=== PATIENT | male | born 1965 | race American Indian/Alaskan Native ===

== ENCOUNTER 2021-02-01 09:52 | Day surgery (SDC) | payer OTHER ==
[2021-02-01 10:54] LABS: Basophils % (Auto) 0.8 % (0.0-1.8); Eosinophils # (Auto) 0.1 K/mm3 (0.0-0.4); Eosinophils % (Auto) 3.1 % (0.0-4.3); Hematocrit 36.3 % (35.5-45.6); Lymphocytes # (Auto) 1.3 K/mm3 (1.2-5.4); Lymphocytes % (Auto) 29.5 % (13.4-35.0); Mean Corpuscular HGB Conc 33 % (32-34); Mean Corpuscular Volume 85 fl (84-94); Monocytes # (Auto) 0.5 K/mm3 (0.0-0.8); Monocytes % (Auto) 11.8 % (0.0-7.3); Platelet Count 303 K/mm3 (140-440); Red Blood Count 4.27 M/mm3 (3.65-5.03); Red Cell Distribution Width 17.1 % (13.2-15.2)
[2021-02-01] MEDS ORDERED: SODIUM CHLORIDE 0.9% 500 ML 500 ML IV SCH (11:00)
[2021-02-01 11:05] LABS: INR 0.98 (0.87-1.13)
[2021-02-01 11:06] LABS: BUN/Creatinine Ratio 18; Blood Urea Nitrogen 14 mg/dL (9-20); Calcium 9.4 mg/dL (8.4-10.2); Hemolysis Index 1; Partial Thromboplastin Time 42.4 Sec. (24.2-36.6)
--- NOTE | 2021-02-01 11:50 | Short Stay Summary ---
Short Stay Documentation Date of service: 02/01/21 Narrative H&P: The patient is a 55-year-old male with a history of a stroke that affects his left lower extremity. He presented with complaints of bilateral lower extremity pain with his left greater than right. He had a work-up including ultrasounds and a CTA of his abdomen pelvis with bilateral lower extremity runoff that demonstrated occlusions of bilateral iliac arteries. He is currently in rehab and has difficulty with his rehab secondary to the occlusions and decreased strength and bilateral lower extremities. He is in need of revascularization and we discussed multiple options including open versus endovascular options. He is interested in attempting the endovascular options prior to any open attempts. He has been given the risk, benefits, and alternative procedures and has consented to the procedure. His right external iliac artery has a stop whereas his left reconstitutes in the common femoral artery so he will require revascularization of the right lower extremity first followed by revascularization of the left. - History Past Medical History: hypertension, hyperlipidemia, PVD, stroke, other (Benign Prostatic Hypertrophy) Past Surgical History: No surgical history Social history: - Allergies and Medications Current Medications: Allergies morphine Allergy (Verified 02/01/21 10:23) UNABLE TO SWALLOW Home Medications Medication Instructions Recorded Confirmed Last Taken Type Furosemide [Lasix] 40 mg PO PRN PRN 02/01/21 02/01/21 01/28/21 History 40 mg Metoprolol [Lopressor TAB] 50 mg PO DAILY 02/01/21 02/01/21 02/01/21 06:00 History Potassium Chloride [Klor-Con M15] 15 meq PO DAILY 02/01/21 02/01/21 02/01/21 06:00 History 1 tab Sacubitril/Valsartan [Entresto 24 1 tab PO DAILY 02/01/21 02/01/21 02/01/21 06:00 History - 26 mg] 1 tab Active Medications Sodium Chloride (Nacl 0.9% 500 Ml) 500 mls @ 50 mls/hr IV DIRECT PAOLO - Physical exam General appearance: no acute distress Lungs: Normal air movement Breasts: deferred Heart: Regular rate Gastrointestinal: normal Male Genitourinary: deferred Rectal Exam: deferred Extremities: pulses intact (1+ right dorsalis pedis and posterior tibial pulses, 1+ left dorsalis pedis pulse), normal temperature - Brief post op/procedure progress note Date of procedure: 02/01/21 Pre-op diagnosis: Peripheral Vascular Disease with B/L Lower Extremity pain and Claudication Post-op diagnosis: same Procedure: 1. Ultrasound-Guided Access Right Superficial Femoral Artery 2. Ultrasound-Guided Access Left Radial Artery 3. Angioplasty and Stent of Right External Iliac Artery with 7 x 60 EverCross Balloon, 8 x 59 Viabahn Stent Graft, 10 x 40 Protg Self-Expanding Stent, 10 x 60 Protg Self-Expanding Stent, and 9 x 60 EverCross Balloon 4. Closure of Right Femoral Arteriotomy with 6 Guyanese Angio-Seal 5. Radiologic Supervision with Interpretation 6. Monitored Moderate Sedation (Total Anesthesia Time: 158 Minutes) Anesthesia: local, other (Monitored Moderate Sedation) Surgeon: RASHAAD STILES Estimated blood loss: minimal Pathology: none Condition: stable - Disposition Condition at discharge: Good Disposition: [id number] TO HOME OR SELFCARE Short Stay Discharge Plan Activity: other (No strenuous activity or heavy lifting with left arm for 24 hours.) Wound: remove dressing (Left wrist dressing in 4 hours. Remove right groin dressing in 24 hours.), other (Okay to shower and wash the wounds with soap and water but do not soak in water for 2 weeks.) Follow up with: RASHAAD STILES MD [Staff Physician] - 14 Days Prescriptions: Apixaban [Eliquis] 5 mg PO BID #60 tablet Clopidogrel [Plavix] 75 mg PO QDAY #90 tablet
[2021-02-01] MEDS ORDERED: HEPARIN/NS 5000 UNIT/500ML 1,000 ML IR ONE (13:44)
[2021-02-01] MEDS ORDERED: MIDAZOLAM 2 MG/2 ML INJ ONE (13:44)
[2021-02-01] MEDS ORDERED: LIDOCAINE (2%) 20 MG/1 ML VIAL 20 ML MDV INFILTRATI ONE (13:45)
[2021-02-01] MEDS ORDERED: NITROGLYCERIN SYRINGE 3 ML ONE (13:46)
[2021-02-01] MEDS ORDERED: VERAPAMIL 5 MG/2 ML INJ ONE (13:46)
[2021-02-01] MEDS ORDERED: SODIUM CHLORIDE 0.9% 1000 ML 1,000 ML ONE (14:10)
[2021-02-01] MEDS: fentaNYL 100 MCG/2 ML INJ ONE ×8 (14:18→16:31)
[2021-02-01] MEDS ORDERED: ceFAZolin/Water 2 GM/20 ML 2 GM/20 ML SYRINGE IV ONE (14:20)
[2021-02-01] MEDS: MIDAZOLAM 2 MG/2 ML INJ ONE ×7 (14:47→16:31)
[2021-02-01] MEDS: HEPARIN 10,000 UNITS/10 ML VIAL ONE ×4 (14:49→16:38)
[2021-02-01] MEDS ORDERED: HEPARIN/NS 5000 UNIT/500ML 500 ML IR ONE (16:03)
[2021-02-01] MEDS ORDERED: CLOPIDOGREL 300 MG TAB PO ONE (17:17)
--- NOTE | 2021-02-01 17:25 | Operative Report ---
Operative Report Operative Report: Date of Procedure: 02/01/2021 Pre-operative Diagnosis: Peripheral Vascular Disease with Bilateral Lower Extrem ity Pain and Claudication Post-operative Diagnosis: Same Procedure(s): 1. Ultrasound-Guided Access Right Superficial Femoral Artery 2. Ultrasound-Guided Access Left Radial Artery 3. Angioplasty and Stent of Right External Iliac Artery with 7 x 60 EverCross Balloon, 8 x 59 Viabahn Stent Graft, 10 x 40 Protg Self-Expanding Stent, 10 x 60 Protg Self-Expanding Stent, and 9 x 60 EverCross Balloon 4. Closure of Right Femoral Arteriotomy with 6 Chilean Angio-Seal 5. Radiologic Supervision with Interpretation 6. Monitored Moderate Sedation (Total Anesthesia Time: 158 Minutes) Surgeon: Canelo Byers M.D. Primary Counselor: Joi Anesthesia: Monitored Moderate Sedation seen Total Anesthesia Time: 158 Minutes EBL: Minimal Counts: Correct Complications: None Condition: Stable Specimen: None Indication: The patient is a 55-year-old male in mild with a history of a stroke affecting his left lower extremity. He presented with complaints of pain and weakness left greater than right involving bilateral lower extremities. His work-up revealed occlusions of bilateral external iliac arteries. He was offered options including endovascular intervention as well as open intervention. He elected to proceed with the endograft intervention. He was given the risk, benefits, and alternative procedures and consented to the procedure. Angiographic Findings: Diagnostic angiogram revealed a high bifurcation of the right SFA and profunda artery. There was occlusion of the common femoral artery just above the bifurcation. The entire external iliac artery was occluded. The common iliac artery and hypogastric artery were widely patent. There were large collaterals from the hypogastric artery that eventually filled the inferior epigastric artery which flowed into the common femoral artery and into the lower extremity. There was no evidence of flow-limiting stenosis within the visualized portions of the SFA and profunda artery. After intervention the external iliac artery was patent with less than 15% residual stenosis. There was thrombus that had been trapped within the common iliac artery behind the stents within the external iliac artery. There was thrombus that had embolized into the proximal hypogastric artery however there was still flow within the hypogastric artery. There was brisk flow through the external iliac artery and into the common femoral artery which had a stent extending into the artery just proximal to the bifurcation. There was no evidence of distal emboli into the common femoral artery. There was now retrograde flow within the inferior epigastric artery. Description of Procedure: The patient was brought to the [facility] and laid in supine position. After a timeout was performed his right leg and left wrist were prepped and draped in normal sterile fashion. Ultrasound was used to identify the right superficial femoral artery and confirm patency. Once patency was confirmed the overlying skin and soft tissue was anesthetized with lidocaine. An 11 blade was used to make a small stab incision and then a curved hemostat was used to bluntly dissect down to the anterior surface of the right superficial femoral artery. A 21-gauge micropuncture needle was used with ultrasound guidance to enter the right superficial femoral artery and a 0.018 micropuncture wire was advanced to the artery. The needle was removed and a micropuncture sheath was advanced over the wire by Seldinger technique. The dilator and wire were removed and a 0.035 short sheath J-wire was advanced into the artery. The micropuncture sheath was removed and a 5 Chilean sheath was placed by Seldinger technique. I made an attempt with a Navicross and multiple wires to cross the occluded common femoral artery into the external iliac artery however this was unsuccessful. I then decided to access the left radial artery. Ultrasound was used to identify the left radial artery and confirm patency. Once patency was confirmed the overlying skin and soft tissue was anesthetized with lidocaine. I used a 21- gauge micropuncture needle with ultrasound guidance to into the left radial artery and a 0.018 micropuncture wire was advanced to the artery. The needle was removed and a 6 Chilean glide slender sheath was advanced into the artery by Seldinger technique. I then administered a radial cocktail to reduce the radial spasm. I advanced the Navicross catheter and a 0.035 glide advantage wire into the thoracic aorta and was able to cannulate the descending aorta. I advanced the catheter and wire into the infrarenal aorta and then performed an angiogram after removing the wire. This identified the left common iliac artery and the level of the occlusion. I advanced the advantage wire into the right hypogastric artery and then remove the Navicross catheter. I then advanced a 6 x 119 cm glide destination sheath into the proximal right common iliac artery and at that point I gave the patient an additional 3000 units of heparin IV. I then used the Navicross catheter with a 0.018 Gladius Wire and was able to advance the catheter and wire to the distal external iliac artery however I was unable to enter the common femoral artery. I was eventually able to advance a 0.014 Choice PT wire into the inferior epigastric artery. I then used a 5 Chilean vertebral catheter and was able to advance that from the right SFA access into the inferior epigastric artery and then used a 6-10 mm Ensare through the vertebral catheter and was able to snare the Choice PT wire and pulled it through the right superficial femoral artery access. At this point I had the patient "body flossed " I then advanced a 0.035 Trailblazer crossing catheter from the left radial access over the Choice PT wire and into the 5 Chilean sheath in the right SFA. I removed the Choice PT wire and advanced the glide advantage wire through the trailblazer catheter. I then remove the 5 Chilean sheath and exchanged for a 7 Chilean 11 cm sheath. I removed the trouble as a catheter and pulled enough of the advantage wire through the 7 Chilean sheath to advanced the Navicross back over the wire and then pulled the advantage wire out and turned it around so that the stiff portion of the wire was out through the SFA and the floppy portion was in the aorta. I then performed angioplasty of the entire right external iliac artery and proximal common femoral artery with a 7 x 60 EverCross Balloon. This resulted in a heavily dissected and barely patent external iliac artery and obvious thrombus within the common iliac artery as well as the hypogastric artery. At this point I realized that I would have to place a stent graft in the proximal external iliac artery. I advanced an 8 x 59 Viabahn VBX Balloon Expandable Stent Graft approximately 5 mm into the common iliac artery and deployed it. There was obvious thrombus in the proximal portion of the stent graft so I deployed a 10 x 40 Protg Self-Expanding Stent with approximately 2 cm of overlap into the common iliac artery. This effectively trapped the thrombus within the common iliac artery but behind the stent. I then postdilated the proximal portion of the Viabahn as well as the overlap of the Protg with a 10 x 40 EverCross Balloon resulted in less than 15% residual stenosis within the proximal external iliac artery. I put deployed a 10 x 60 Protg Self-Expanding Stent, with approximately 2 cm of overlap, and the external iliac extending into the proximal common femoral artery. I postdilated this with a 9 x 60 EverCross Balloon with a result of less than 15% residual stenosis and no evidence of distal emboli. Again there was evidence of some emboli in the proximal hypogastric artery but there was brisk flow throughout the artery. At this point I removed the sheath used a 6 Chilean Gema o-Seal to close the right superficial femoral artery arteriotomy. I then reinserted the advantage wire through the left radial sheath and inserted the dilator. I then removed the sheath as well as the dilator and wire and manual pressure was held to achieve hemostasis. Once hemostasis was achieved a pressure dressing was applied on the left radial artery access site and the patient was transported to the recovery area in stable condition.
[2021-02-01] MEDS ORDERED: HYDROcodone/ACETAMINOPHEN 5-325 MG TAB PO PRN (17:31)
[2021-02-01] MEDS ORDERED: APIXABAN 5 MG TAB PO ONE (18:00)
[2021-02-01] MEDS ORDERED: APIXABAN 5 MG TAB ONE (18:05)
[2021-02-01] MEDS ORDERED: ONDANSETRON 4 MG/2 ML INJ IV ONE (18:41)
[2021-02-01 19:36] VITALS: BP 129/80
== END 2021-02-01 20:00 | disposition home or self-care (01) ==
LOC: CATHLABREC 09:52
PROVIDERS: ATTEND Surgery Vascular Surgery
DX: I70.213 Atherosclerosis of native arteries of extremities with intermittent claudication, bilateral legs (principal); I48.91 Unspecified atrial fibrillation; I10 Essential (primary) hypertension; M19.90 Unspecified osteoarthritis, unspecified site; Z87.891 Personal history of nicotine dependence; Z79.899 Other long term (current) drug therapy; Z98.890 Other specified postprocedural states
CPT/HCPCS: 36415; 37221; 75710; 76937; 80048; 82962; 85025; 85610; 85730; 96374; 99156; 99157; C1725; C1760; C1769; C1773; C1874; C1876; C1887; C1894; J0690; J1644; J2250; J2405; J3010; J7030; Q9967

== ENCOUNTER 2021-02-15 10:53 | Observation (INO) | payer OTHER ==
[2021-02-15] MEDS ORDERED: SODIUM CHLORIDE 0.9% 500 ML 500 ML IV SCH (12:00)
[2021-02-15 12:21] LABS: Basophils # (Auto) 0.1 K/mm3 (0.0-0.1); Basophils % (Auto) 1.4 % (0.0-1.8); Eosinophils # (Auto) 0.2 K/mm3 (0.0-0.4); Hematocrit 30.6 % (35.5-45.6); Hemoglobin 10.2 gm/dl (11.8-15.2); Lymphocytes # (Auto) 1.4 K/mm3 (1.2-5.4); Lymphocytes % (Auto) 28.9 % (13.4-35.0); Mean Corpuscular HGB Conc 34 % (32-34); Mean Corpuscular Volume 86 fl (84-94); Monocytes # (Auto) 0.5 K/mm3 (0.0-0.8); Monocytes % (Auto) 11.1 % (0.0-7.3); Platelet Count 306 K/mm3 (140-440); Red Blood Count 3.57 M/mm3 (3.65-5.03); Red Cell Distribution Width 17.3 % (13.2-15.2)
[2021-02-15 12:34] LABS: BUN/Creatinine Ratio 18; Blood Urea Nitrogen 14 mg/dL (9-20); Calcium 9.4 mg/dL (8.4-10.2); Hemolysis Index 10
[2021-02-15 14:08] LABS: INR 1.08 (0.87-1.13); Partial Thromboplastin Time 29.4 Sec. (24.2-36.6)
[2021-02-15] MEDS ORDERED: HYDROcodone/ACETAMINOPHEN 5-325 MG TAB PO PRN (15:52)
[2021-02-15] MEDS ORDERED: ACETAMINOPHEN 325 MG TAB PO PRN (15:52)
[2021-02-15] MEDS ORDERED: HEPARIN/NS 5000 UNIT/500ML 1,000 ML IR ONE (15:52)
[2021-02-15] MEDS: HEPARIN 10,000 UNITS/10 ML VIAL ONE ×4 (16:05→17:39)
[2021-02-15] MEDS: VERAPAMIL 5 MG/2 ML INJ ONE ×2 (16:06→16:41)
[2021-02-15] MEDS: ceFAZolin/Water 2 GM/20 ML 2 GM/20 ML SYRINGE IV ONE ×2 (16:07→16:13)
[2021-02-15] MEDS: NITROGLYCERIN SYRINGE 3 ML ONE ×2 (16:10→16:41)
[2021-02-15] MEDS: fentaNYL 100 MCG/2 ML INJ ONE ×3 (16:20→17:24)
[2021-02-15] MEDS: MIDAZOLAM 2 MG/2 ML INJ ONE ×3 (16:20→17:24)
[2021-02-15] MEDS: LIDOCAINE (2%) 20 MG/1 ML VIAL 20 ML MDV INFILTRATI ONE ×2 (16:25→16:38)
[2021-02-15] MEDS ORDERED: fentaNYL 100 MCG/2 ML INJ ONE (17:32)
[2021-02-15] MEDS ORDERED: MIDAZOLAM 2 MG/2 ML INJ ONE (17:32)
[2021-02-15] MEDS ORDERED: hydrALAZINE 20 MG/1 ML INJ ONE (17:50)
[2021-02-15] MEDS ORDERED: CLOPIDOGREL 300 MG TAB ONE (18:14)
[2021-02-15] MEDS ORDERED: CLOPIDOGREL 300 MG TAB PO ONE (18:22)
[2021-02-15] MEDS ORDERED: hydrALAZINE 20 MG/1 ML INJ IV PRN (18:24)
--- NOTE | 2021-02-15 18:28 | Operative Report ---
Operative Report Operative Report: Date of Procedure: 02/15/2021 Pre-operative Diagnosis: Peripheral Vascular Disease with Left Lower Extremity W eakness and Claudication Post-operative Diagnosis: Same Procedure(s): 1. Ultrasound-Guided Access Left Superficial Femoral Artery 2. Ultrasound-Guided Access Left Radial Artery 3. Left Lower Extremity Angiogram 4. Angioplasty and Stent of Left Common Iliac Artery with 10 x 40 EverCross Balloon, 8 x 59 Viabahn VBX Balloon Expandable Stent Graft, and 10 x 60 Protg Self-expanding Stent 5. Angioplasty and Stent of Left External Iliac Artery with 8 x 60 Lutonix Drug-Coated Balloon and 8 x 10 cm Viabahn Stent Graft 6. Angioplasty and Stent 0f Left Common Femoral Artery with 7 x 80 IN.PACT Drug-Coated Balloon and 8 x 40 Protg Self-expanding Stent 7. Closure of Left Femoral Arteriotomy with 6 Micronesian Angio-Seal 8. Radiologic Supervision with Interpretation 9. Monitored Moderate Sedation (Total Anesthesia Time: 113 Minutes) Surgeon: Canelo Byers M.D. Filtration Plant Mechanic: None Anesthesia: Local/Monitored Moderate Sedation Total Anesthesia Time: 113 Minutes EBL: Minimal Counts: Correct Complications: None Condition: Stable Specimen: None Indication: The patient is a 55-year-old male with a history of peripheral vascular disease and claudication of his right lower extremity with severe weakness of his left lower extremity which was complicated by stroke involving his left side. He has been attempting to rehab however given the stroke as well as peripheral vascular disease involving bilateral lower extremities it has been difficult for him to rehab. He has had endovascular invention to improve the flow to his right lower extremity and now presents for endovascular intervention to improve the left lower extremity. He has been given the risks, benefits, and alternative procedures and consents to the procedure. Angiographic Findings: The angiogram revealed an occlusion of the left external iliac artery at its origin with reconstitution of flow through collaterals from the hypogastric artery at the distal common femoral artery just above the bifurcation of the SFA and profunda artery. There was no significant stenosis in the distal runoff. After intervention there was evidence of thrombus within the hypogastric artery that was trapped in place by self-expanding stent preventing it from embolizing down the leg. The thrombus within the hypogastric artery was not flow-limiting. There was brisk flow through the external iliac artery which was now patent with less than 20% residual stenosis. The common femoral artery was patent with less than 20% residual stenosis. There was no evidence of distal emboli and brisk flow of contrast into both the SFA and profunda artery. Description of Procedure: The patient was brought to the [facility] and laid in supine position. After timeout was performed his left groin, thigh, and left wrist were prepped and draped in normal sterile fashion. Ultrasound was used to identify the left superficial femoral artery and confirm patency. Once patency was confirmed the overlying skin and soft tissue was anesthetized with lidocaine. An 11 blade was used to make a small stab incision and then a curved hemostat was used with ultrasound guidance to bluntly dissect down to the anterior surface of the left SFA. A 21-gauge micropuncture needle was used with ultrasound guidance into the anterior surface of the left SFA and a 0.018 micropuncture wire was advanced into the artery. The needle was removed and a micropuncture sheath was placed by Seldinger technique. The wire and inner dilator were removed and a 0.035 short J-wire were advanced into the artery. The micropuncture sheath was exchanged for a 5 Micronesian sheath by Seldinger technique. A hand-injection performed from the sheath demonstrated occlusion of the common femoral artery with a small stump just above the bifurcation. I attempted to cross this with a vertebral catheter and 0.018 Gladius Wire however this was unsuccessful so I decided to access the radial artery. Ultrasound was used to identify the radial artery and confirm patency. I used lidocaine to anesthetize the skin and overlying soft tissue and then used a 21-gauge micropuncture needle to access the radial artery with ultrasound guidance. I advanced the 0.018 micropuncture wire into the artery and then exchanged the needle for a 6 Micronesian sheath. At this point I injected a radial cocktail consisting of heparin, verapamil, and nitroglycerin to prevent radial spasm. I then used a Bentson wire and JR4 catheter to cannulate the descending thoracic aorta and then exchanged the Bentson wire for a 0.035 glide advantage wire. I then exchanged the JR4 catheter for a Navicross catheter and advanced the catheter and wire into the distal aorta. I performed a diagnostic angiogram with the previously described findings. I advanced the advantage wire into the distal left common iliac artery and then exchanged the 6 Micronesian 11 cm sheath for a 6 Micronesian 119 cm sheath. At this point I systemically heparinized the patient with an additional 4000 units of heparin IV. I then advanced the Navicross catheter back into the iliac artery and used a combination of the Gladius Wire and the glide advantage wire to cross the occluded external iliac artery and proximal common femoral artery and reenter the distal common femoral artery which was confirmed by angiogram. I then used the glide advantage wire and the Navicross catheter to cannulate the 5 Micronesian sheath within the SFA and advanced the wire through the vertebral catheter and out of the left femoral puncture site. I then exchanged the 5 Micronesian sheath for a 7 Micronesian 23 cm sheath. I advanced this sheath into the left common iliac artery. At that point I advanced the glide advantage wire through the 7 Micronesian sheath and into the aorta and pulled the radial wire back into the aorta. I then used a 5 x 120 EverCross Balloon to predilate the occlusion of the external iliac artery and common femoral artery. I then advanced an 8 x 59 Viabahn VBX Balloon Expandable Stent Graft into the distal left common iliac artery and deployed it. I removed the delivery catheter and performed an angiogram which demonstrated thrombus within the common iliac artery as well as in the hypogastric artery. I then placed a 10 x 60 Protg Self-Expanding Stent into the proximal common iliac artery, trapping the thrombus within the artery, to prevent embolization of the thrombus. I used a 10 x 40 EverCross Balloon to flowered the proximal Viabahn VBX stent graft. This resulted in less than 20% residual stenosis of the distal common iliac artery as well as trapping the thrombus within the artery. The thrombus within the hypogastric artery was nonocclusive and nonflow-limiting. I used an 8 x 60 Lutonix Drug-Coated Balloon to perform angioplasty of the remaining external iliac artery which resulted in approximately 60% residual stenosis with a significant amount of thrombus line in the artery. I decided to place a stent graft across this area so I exchanged the glide advantage wire for the 0.018 Gladius Wire. I advanced the 8 x 10 cm Viabahn Stent Graft into position in the external iliac artery with some overlap into the common femoral artery and then postdilated this with an 8 x 40 [place] Balloon with a result of less than 20% residual stenosis and no evidence of distal emboli. I then used a 7 x 80 IN.PACT drug-coated balloon to perform angioplasty of the distal common femoral artery which had a significant dissection. I further treated this with an 8 x 40 Protg Self-Expanding Stent and posted this with the 8 x 40 [place] Balloon resulted in less than 20% residual stenosis and brisk flow into both the SFA and profunda artery. There was no evidence of distal emboli within the SFA or profunda artery. At this point I used a 6 Micronesian Angio-Seal to close my left femoral arteriotomy in the SFA after removing the sheath. A sterile dressing was then applied to the entry site and then the pressure dressing was applied. I then reinserted the dilator and the radial sheath and exchanged it for a 6 Micronesian 11 cm sheath. A TR Band was then applied to the radial entry site after removing the sheath, to achieve hemostasis. The patient tolerated the procedure well and was transported to the recovery area in stable condition.
[2021-02-15] MEDS ORDERED: ONDANSETRON 4 MG/2 ML INJ IV PRN (19:05)
[2021-02-15] MEDS: oxyCODONE /ACETAMINOPHEN 5-325MG TAB PO PRN (20:05)
[2021-02-15] MEDS: PANTOPRAZOLE 40 MG TAB PO SCH (22:36)
[2021-02-15] MEDS: APIXABAN 5 MG TAB PO SCH (22:36)
[2021-02-15] MEDS: SODIUM CHLORIDE 0.9% 1000 ML 1,000 ML IV SCH (22:37)
[2021-02-16] LABS: Hematocrit 31.9 % (35.5-45.6); Hemoglobin 10.6 gm/dl (11.8-15.2); Mean Corpuscular HGB Conc 33 % (32-34); Mean Corpuscular Volume 86 fl (84-94); Platelet Count 326 K/mm3 (140-440); Red Blood Count 3.73 M/mm3 (3.65-5.03)
[2021-02-16 00:10] LABS: INR 1.07 (0.87-1.13)
[2021-02-16 00:11] LABS: Partial Thromboplastin Time 31.6 Sec. (24.2-36.6)
[2021-02-16] MEDS: FUROSEMIDE 40 MG TAB PO SCH (05:30)
--- NOTE | 2021-02-16 09:02 | Short Stay Summary ---
Short Stay Documentation Date of service: 02/16/21 Narrative H&P: See H&P - History H&P: obtained from office - Allergies and Medications Current Medications: Allergies morphine Allergy (Verified 02/01/21 10:23) UNABLE TO SWALLOW Home Medications Medication Instructions Recorded Confirmed Last Taken Type Apixaban [Eliquis] 5 mg PO BID #60 tablet 02/01/21 02/15/21 1 Day Ago Rx ~02/14/21 Potassium Chloride [Klor-Con M15] 15 meq PO DAILY 02/01/21 02/15/21 1 Day Ago History ~02/14/21 RX: Furosemide [Lasix] 40 mg PO PRN PRN 02/01/21 02/15/21 1 Day Ago History ~02/14/21 RX: Metoprolol [Lopressor TAB] 50 mg PO DAILY 02/01/21 02/15/21 1 Day Ago History ~02/14/21 RX: Sacubitril/Valsartan [Entresto 1 tab PO DAILY 02/01/21 02/15/21 1 Day Ago History 24 - 26 mg] ~02/14/21 Oxybutynin [Ditropan] 5 mg PO QHS 02/16/21 02/16/21 02/13/21 22:00 History Active Medications Acetaminophen (Acetaminophen 325 Mg Tab) 650 mg PO Q6H PRN PRN Reason: Pain, Mild (1-3) Apixaban (Apixaban 5 Mg Tab) 5 mg PO Q12HR [facility]; Protocol Last Admin: 02/15/21 22:36 Dose: 5 mg Documented by: Aspirin (Aspirin Ec 81 Mg Tab) 81 mg PO QDAY [facility] Clopidogrel Bisulfate (Clopidogrel 75 Mg Tab) 75 mg PO QDAY [facility] Furosemide (Furosemide 40 Mg Tab) 40 mg PO DAILY@0600 [facility] Last Admin: 02/16/21 05:30 Dose: 40 mg Documented by: Hydralazine HCl (Hydralazine 20 Mg/1 Ml Inj) 20 mg IV Q4HR PRN PRN Reason: Hypertension Sodium Chloride (Nacl 0.9% 1000 Ml) 1,000 mls @ 75 mls/hr IV DIRECT [facility] Last Admin: 02/15/21 22:37 Dose: 75 mls/hr Documented by: Metoprolol Tartrate (Metoprolol Tartrate 50 Mg Tab) 50 mg PO DAILY [facility] Ondansetron HCl (Ondansetron 4 Mg/2 Ml Inj) 4 mg IV Q8H PRN PRN Reason: Nausea And Vomiting Last Admin: 02/15/21 19:10 Dose: 4 mg Documented by: Oxycodone/Acetaminophen (Oxycodone /Acetaminophen 5-325mg Tab) 1 tab PO Q4H PRN PRN Reason: Pain, Moderate (4-6) Last Admin: 02/15/21 20:05 Dose: 1 tab Documented by: Pantoprazole Sodium (Pantoprazole 40 Mg Tab) 40 mg PO QDAC [facility] Last Admin: 02/15/21 22:36 Dose: 40 mg Documented by: Potassium Bicarbonate (K-Lyte 25 Meq Tablet Eff) 25 meq PO QDAY [facility] - Brief post op/procedure progress note Date of procedure: 02/15/21 Pre-op diagnosis: PVD with Left Lower Extremity Weakness and Claudication Post-op diagnosis: same Procedure: 1. Ultrasound-Guided Access Left Superficial Femoral Artery 2. Ultrasound-Guided Access Left Radial Artery 3. Left Lower Extremity Angiogram 4. Angioplasty and Stent of Left Common Iliac Artery with 10 x 40 EverCross Balloon, 8 x 59 Viabahn VBX Balloon Expandable Stent Graft, and 10 x 60 Protg Self-expanding Stent 5. Angioplasty and Stent of Left External Iliac Artery with 8 x 60 Lutonix Drug-Coated Balloon and 8 x 10 cm Viabahn Stent Graft 6. Angioplasty and Stent 0f Left Common Femoral Artery with 7 x 80 IN.PACT Drug-Coated Balloon and 8 x 40 Protg Self-expanding Stent 7. Closure of Left Femoral Arteriotomy with 6 [place] Angio-Seal 8. Radiologic Supervision with Interpretation 9. Monitored Moderate Sedation (Total Anesthesia Time: 113 Minutes) Anesthesia: local, other (Monitored Moderate Sedation) Surgeon: RASHAAD STILES Estimated blood loss: minimal Pathology: none Condition: stable - Disposition Condition at discharge: Good Disposition: 01 HOME / SELF CARE / HOMELESS Short Stay Discharge Plan Activity: other (No strenuous activity for 24 hours) Wound: remove dressing (24 hours), other (Okay to shower and wash the wound with soap and water but do not soak in water for 2 weeks.) Follow up with: RASHAAD STILES MD [Staff Physician] - 14 Days Prescriptions: RX: Aspirin EC [Halfprin EC] 81 mg PO QDAY #90 tablet.dr Oxycodone HCl/Acetaminophen [Percocet 7.5/325 mg] 1 each PO Q6HR PRN #20 tablet PRN Reason: Pain Clopidogrel [Plavix] 75 mg PO QDAY #90 tablet Pantoprazole [Protonix] 40 mg PO QDAY #90 tablet
[2021-02-16] MEDS: ASPIRIN EC 81 MG TAB PO SCH (10:42)
[2021-02-16] MEDS: APIXABAN 5 MG TAB PO SCH ×2 (10:42→23:30)
[2021-02-16] MEDS: SACUBITRIL/VALSARTAN 24-26 MG TAB PO SCH (10:42)
[2021-02-16] MEDS: PANTOPRAZOLE 40 MG TAB PO SCH (10:42)
[2021-02-16] MEDS: K-LYTE 25 MEQ TABLET EFF PO SCH (10:42)
[2021-02-16] MEDS: METOPROLOL TARTRATE 50 MG TAB PO SCH (10:43)
[2021-02-16] MEDS: CLOPIDOGREL 75 MG TAB PO SCH (10:43)
[2021-02-16] MEDS: oxyCODONE /ACETAMINOPHEN 5-325MG TAB PO PRN ×2 (13:38→23:30)
--- NOTE | 2021-02-16 14:40 | Consultation ---
History of Present Illness Consult date: 02/16/21 Reason for consult: wound care - History of present illness History of present illness: General surgery consulted for wound evaluation on sacrum. Patient is a 55-year-old male who was admitted status post endovascular procedure for peripheral vascular disease. Patient says he is wheelchair-bound and has had some pain in the sacral area for the last 5 to 6 days. Past History Past Medical History: hypertension, hyperlipidemia, stroke, other (Peripheral vascular disease) Past Surgical History: Other (Endovascular peripheral procedures) Medications and Allergies Allergies Allergy/AdvReac Type Severity Reaction Status Date / Time morphine Allergy UNABLE TO Verified 02/01/21 10:23 SWALLOW Home Medications Medication Instructions Recorded Confirmed Last Taken Type Apixaban [Eliquis] 5 mg PO BID #60 tablet 02/01/21 02/15/21 1 Day Ago Rx ~02/14/21 Furosemide [Lasix] 40 mg PO PRN PRN 02/01/21 02/15/21 1 Day Ago History ~02/14/21 Metoprolol [Lopressor TAB] 50 mg PO DAILY 02/01/21 02/15/21 1 Day Ago History ~02/14/21 Potassium Chloride [Klor-Con M15] 15 meq PO DAILY 02/01/21 02/15/21 1 Day Ago History ~02/14/21 Sacubitril/Valsartan [Entresto 24 1 tab PO DAILY 02/01/21 02/15/21 1 Day Ago History - 26 mg] ~02/14/21 Aspirin EC [Halfprin EC] 81 mg PO QDAY #90 tablet. 02/16/21 Unknown Rx Clopidogrel [Plavix] 75 mg PO QDAY #90 tablet 02/16/21 Unknown Rx Oxybutynin [Ditropan] 5 mg PO QHS 02/16/21 02/16/21 02/13/21 22:00 History Oxycodone HCl/Acetaminophen 1 each PO Q6HR PRN #20 tablet 02/16/21 Unknown Rx [Percocet 7.5/325 mg] Pantoprazole [Protonix] 40 mg PO QDAY #90 tablet 02/16/21 Unknown Rx Active Meds: Active Medications Acetaminophen (Acetaminophen 325 Mg Tab) 650 mg PO Q6H PRN PRN Reason: Pain, Mild (1-3) Apixaban (Apixaban 5 Mg Tab) 5 mg PO Q12HR [facility]; Protocol Last Admin: 02/16/21 10:42 Dose: 5 mg Documented by: Aspirin (Aspirin Ec 81 Mg Tab) 81 mg PO QDAY [facility] Last Admin: 02/16/21 10:42 Dose: 81 mg Documented by: Clopidogrel Bisulfate (Clopidogrel 75 Mg Tab) 75 mg PO QDAY [facility] Last Admin: 02/16/21 10:43 Dose: 75 mg Documented by: Furosemide (Furosemide 40 Mg Tab) 40 mg PO DAILY@0600 [facility] Last Admin: 02/16/21 05:30 Dose: 40 mg Documented by: Hydralazine HCl (Hydralazine 20 Mg/1 Ml Inj) 20 mg IV Q4HR PRN PRN Reason: Hypertension Sodium Chloride (Nacl 0.9% 1000 Ml) 1,000 mls @ 75 mls/hr IV DIRECT [facility] Last Admin: 02/15/21 22:37 Dose: 75 mls/hr Documented by: Metoprolol Tartrate (Metoprolol Tartrate 50 Mg Tab) 50 mg PO DAILY [facility] Last Admin: 02/16/21 10:43 Dose: 50 mg Documented by: Ondansetron HCl (Ondansetron 4 Mg/2 Ml Inj) 4 mg IV Q8H PRN PRN Reason: Nausea And Vomiting Last Admin: 02/15/21 19:10 Dose: 4 mg Documented by: Oxycodone/Acetaminophen (Oxycodone /Acetaminophen 5-325mg Tab) 1 tab PO Q4H PRN PRN Reason: Pain, Moderate (4-6) Last Admin: 02/16/21 13:38 Dose: 1 tab Documented by: Pantoprazole Sodium (Pantoprazole 40 Mg Tab) 40 mg PO QDAC [facility] Last Admin: 02/16/21 10:42 Dose: 40 mg Documented by: Potassium Bicarbonate (K-Lyte 25 Meq Tablet Eff) 25 meq PO QDAY [facility] Last Admin: 02/16/21 10:42 Dose: 25 meq Documented by: Review of Systems All systems: negative - Cardiovascular high blood pressure - Muskuloskeletal atrophy - Integumentary wounds - Neurological weakness, parathesias Exam Vital Signs Temp Pulse Resp BP Pulse Ox 98.5 F 64 21 104/64 99 02/15/21 11:41 02/15/21 11:41 02/15/21 11:41 02/15/21 11:41 02/15/21 11:41 - General physical appearance Positive: no distress, no pain, cathetic - Eyes Positive: PERRL - Respiratory Positive: normal expansion, normal respiratory effort - Extremities Extremities: abnormal (Bilateral lower extremity atrophy) - Abdomen Abdomen: Present: soft. Absent: tender - Integumentary other (1 x 2 cm superficial skin breakdown at the sacral prominence at the proximal gluteal cleft. No signs of odor, drainage, or fluctuance.) Results - Labs 02/15/21 23:05 02/15/21 23:05 Abnormal lab results 02/15/21 Range/Units 23:05 Hgb 10.6 L (11.8-15.2) gm/dl Hct 31.9 L (35.5-45.6) % RDW 17.0 H (13.2-15.2) % Diabetes panel 02/15/21 Range/Units 23:05 Creatinine 0.8 (0.8-1.3) mg/dL Pituitary panel 02/15/21 Range/Units 23:05 Creatinine 0.8 (0.8-1.3) mg/dL Adrenal panel 02/15/21 Range/Units 23:05 Creatinine 0.8 (0.8-1.3) mg/dL Assessment and Plan 55-year-old male with a stage I sacral decubitus ulcer. Likely due to his immobility. Patient is afebrile and stable. There is no surgical intervention warranted at this time. Plan: 1. pressure dressings to area daily 2. Offloading 3. prn pain control 4. DVT ppx
--- NOTE | 2021-02-16 19:18 | Progress Note ---
Assessment and Plan The patient is doing well status post endovascular revascularization of his left lower extremity. He has some nausea overnight and this morning and has not been out of bed. I will watch him 1 more day and discharge him tomorrow in the a.m. I discussed with the patient the need for taking all prescribed medications especially his antiplatelet therapy along with his anticoagulation. The patient expressed understanding and agrees with the plan. Subjective Date of service: 02/16/21 Interval history: The patient states he has some nausea overnight without vomiting. He has no additional complaints at this time. Objective - Constitutional Vitals: Vital Signs - 12hr 02/16/21 02/16/21 02/16/21 10:00 11:40 15:17 Temperature 98.8 F 99.0 F Pulse Rate 91 H 78 Respiratory 22 18 Rate Blood Pressure 109/70 101/55 O2 Sat by Pulse 95 97 100 Oximetry General appearance: Present: no acute distress - Respiratory Respiratory effort: normal - Cardiovascular Rhythm: regular Extremities: pulses intact (Left radial pulses intact, bilateral dorsalis pedis pulses and posterior tibial pulses are intact), abnormal (Left thigh is soft and without hematoma, the dressing is clean dry and intact) - Labs CBC & Chem 7: 02/15/21 23:05 02/15/21 23:05 Labs: Abnormal lab results 02/15/21 Range/Units 23:05 Hgb 10.6 L (11.8-15.2) gm/dl Hct 31.9 L (35.5-45.6) % RDW 17.0 H (13.2-15.2) % Medications & Allergies - Medications Allergies/Adverse Reactions: Allergies morphine Allergy (Verified 02/01/21 10:23) UNABLE TO SWALLOW Home Medications: Home Medications Medication Instructions Recorded Confirmed Last Taken Type Apixaban [Eliquis] 5 mg PO BID #60 tablet 02/01/21 02/15/21 1 Day Ago Rx ~02/14/21 Furosemide [Lasix] 40 mg PO PRN PRN 02/01/21 02/15/21 1 Day Ago History ~02/14/21 Metoprolol [Lopressor TAB] 50 mg PO DAILY 02/01/21 02/15/21 1 Day Ago History ~02/14/21 Potassium Chloride [Klor-Con M15] 15 meq PO DAILY 02/01/21 02/15/21 1 Day Ago History ~02/14/21 Sacubitril/Valsartan [Entresto 24 1 tab PO DAILY 02/01/21 02/15/21 1 Day Ago History - 26 mg] ~02/14/21 Aspirin EC [Halfprin EC] 81 mg PO QDAY #90 tablet. 02/16/21 Unknown Rx Clopidogrel [Plavix] 75 mg PO QDAY #90 tablet 02/16/21 Unknown Rx Oxybutynin [Ditropan] 5 mg PO QHS 02/16/21 02/16/21 02/13/21 22:00 History Oxycodone HCl/Acetaminophen 1 each PO Q6HR PRN #20 tablet 02/16/21 Unknown Rx [Percocet 7.5/325 mg] Pantoprazole [Protonix] 40 mg PO QDAY #90 tablet 02/16/21 Unknown Rx Active Medications: Generic Name Dose Route Start Last Admin Trade Name Freq PRN Reason Stop Dose Admin Acetaminophen 650 mg 02/15/21 15:52 Acetaminophen 325 Mg Tab PO Q6H PRN Pain, Mild (1-3) Apixaban 5 mg 02/15/21 22:00 02/16/21 10:42 Apixaban 5 Mg Tab PO 5 mg Q12HR [facility] Administration Protocol Aspirin 81 mg 02/16/21 10:00 02/16/21 10:42 Aspirin Ec 81 Mg Tab PO 81 mg QDAY [facility] Administration Clopidogrel Bisulfate 75 mg 02/16/21 10:00 02/16/21 10:43 Clopidogrel 75 Mg Tab PO 75 mg QDAY [facility] Administration Furosemide 40 mg 02/16/21 06:00 02/16/21 05:30 Furosemide 40 Mg Tab PO 40 mg DAILY@0600 [facility] Administration Hydralazine HCl 20 mg 02/15/21 18:24 Hydralazine 20 Mg/1 Ml Inj IV Q4HR PRN Hypertension Sodium Chloride 1,000 mls @ 75 mls/hr 02/15/21 18:30 02/15/21 22:37 Nacl 0.9% 1000 Ml IV 75 mls/hr DIRECT [facility] Administration Metoprolol Tartrate 50 mg 02/16/21 10:00 02/16/21 10:43 Metoprolol Tartrate 50 Mg Tab PO 50 mg DAILY [facility] Administration Ondansetron HCl 4 mg 02/15/21 19:05 02/15/21 19:10 Ondansetron 4 Mg/2 Ml Inj IV 4 mg Q8H PRN Administration Nausea And Vomiting Oxycodone/Acetaminophen 1 tab 02/15/21 18:26 02/16/21 13:38 Oxycodone /Acetaminophen 5-325mg Tab PO 1 tab Q4H PRN Administration Pain, Moderate (4-6) Pantoprazole Sodium 40 mg 02/15/21 20:00 02/16/21 10:42 Pantoprazole 40 Mg Tab PO 40 mg QDAC [facility] Administration Potassium Bicarbonate 25 meq 02/16/21 10:00 02/16/21 10:42 K-Lyte 25 Meq Tablet Eff PO 25 meq QDAY [facility] Administration
[2021-02-16] MEDS: SODIUM CHLORIDE 0.9% 1000 ML 1,000 ML IV SCH (23:31)
[2021-02-17 04:26] LABS: Hematocrit 29.5 % (35.5-45.6); Hemoglobin 9.7 gm/dl (11.8-15.2); Mean Corpuscular HGB Conc 33 % (32-34); Mean Corpuscular Volume 86 fl (84-94); Platelet Count 295 K/mm3 (140-440); Red Blood Count 3.45 M/mm3 (3.65-5.03); Red Cell Distribution Width 17.5 % (13.2-15.2)
[2021-02-17] MEDS: FUROSEMIDE 40 MG TAB PO SCH (05:09)
[2021-02-17] MEDS: CLOPIDOGREL 75 MG TAB PO SCH (09:37)
[2021-02-17] MEDS: ASPIRIN EC 81 MG TAB PO SCH (09:37)
[2021-02-17] MEDS: APIXABAN 5 MG TAB PO SCH (09:37)
[2021-02-17] MEDS: SACUBITRIL/VALSARTAN 24-26 MG TAB PO SCH (09:38)
[2021-02-17] MEDS: PANTOPRAZOLE 40 MG TAB PO SCH (09:38)
[2021-02-17] MEDS: METOPROLOL TARTRATE 50 MG TAB PO SCH (09:38)
--- NOTE | 2021-02-17 10:04 | Discharge Summary ---
Providers - Providers Date of Admission: 02/15/21 15:52 Date of discharge: 02/17/21 Attending physician: RASHAAD STILES 02/16/21 04:58 Consult to Wound/ET Nurse [CONS] Routine Reason For Exam: wound eval Primary care physician: MICHELLE WHALEN Hospitalization Condition: Good Hospital course: Patient with a history of peripheral vascular disease who is postop day 1 endovascular repair of his iliac arteries using stent graft and drug-coated balloons. The patient's puncture site is soft with only minimal subcutaneous hematoma. Minimal amount of tenderness along the medial aspect of his thigh however, no deep hematoma was palpated. Patient has strongly palpable pedal pulses bilaterally. He has no complaints of pain. Disposition: 01 HOME / SELF CARE / HOMELESS Final Discharge Diagnosis (Prints w/discharge instructions): PVD with claudication Core Measure Documentation - Palliative Care Palliative Care/ Comfort Measures: Not Applicable - Core Measures Any of the following diagnoses?: none Exam - Constitutional Vitals: Temp Pulse Resp BP Pulse Ox 98.8 F 79 18 108/58 96 02/17/21 04:03 02/17/21 09:38 02/17/21 04:03 02/17/21 09:38 02/17/21 04:03 General appearance: Present: no acute distress - EENT Eyes: Present: EOM intact ENT: hearing intact - Neck Neck: Present: supple, normal ROM - Respiratory Respiratory effort: normal - Extremities Extremities: no ischemia, Full ROM - Abdominal General gastrointestinal: Present: deferred Male genitourinary: Present: deferred - Rectal Rectal Exam: deferred - Psychiatric Psychiatric: appropriate mood/affect, cooperative Plan Activity: advance as tolerated Weight Bearing Status: Weight Bear as Tolerated Wound: keep clean and dry, per your surgeon's advice Follow up with: RASHAAD STILES MD [Staff Physician] - 14 Days Prescriptions: Aspirin EC [Halfprin EC] 81 mg PO QDAY #90 tablet. Oxycodone HCl/Acetaminophen [Percocet 7.5/325 mg] 1 each PO Q6HR PRN #20 tablet PRN Reason: Pain Clopidogrel [Plavix] 75 mg PO QDAY #90 tablet Pantoprazole [Protonix] 40 mg PO QDAY #90 tablet
[2021-02-17] MEDS: K-LYTE 25 MEQ TABLET EFF PO SCH (10:39)
[2021-02-17 13:52] VITALS: BP 103/62
== END 2021-02-17 14:00 | disposition home or self-care (01) ==
LOC: CATHLABREC 10:53 → 4A 15:52 → 3A 16:49
PROVIDERS: ADMIT Surgery Vascular Surgery; ATTEND Surgery Vascular Surgery
DX: I70.213 Atherosclerosis of native arteries of extremities with intermittent claudication, bilateral legs (principal); I10 Essential (primary) hypertension; A01.05 Typhoid osteomyelitis; L89.151 Pressure ulcer of sacral region, stage 1; Z79.82 Long term (current) use of aspirin
CPT/HCPCS: 36415; 37221; 37223; 37226; 76937; 80048; 82565; 85025; 85027; 85610; 85730; 87641; 96361; 96374; C1725; C1751; C1760; C1769; C1874; C1876; C1887; C1894; C2623; C9765; G0378; J0360; J0690; J1644; J2250; J2405; J3010; J7030; J7040; Q9967

== ENCOUNTER 2021-02-20 20:57 | Emergency (ER) | payer OTHER ==
[2021-02-20 21:16] VITALS: BP 112/63
--- NOTE | 2021-02-20 21:18 | Event Note ---
ED Screening Note Date of service: 02/20/21 Time: 21:16 ED Screening Note: 55-year-old -Spanish male presents to the emergency room complaining of left lower leg swelling pain and states he cannot feel pulse. Patient is status post stent placement to the left leg last . Patient leg is warm full range of motion not able to appreciate pulses most likely due from his edema. Ultrasound of left lower leg has been ordered. Further studies can be ordered by physician is going to evaluate patient. This initial assessment/diagnostic orders/clinical plan/treatment(s) is/are subject to change based on patients health status, clinical progression and re- assessment by fellow clinical providers in the ED. Further treatment and workup at subsequent clinical providers discretion. Patient/guardian urged not to elope from the ED as their condition may be serious if not clinically assessed and managed. Initial orders include:
--- NOTE | 2021-02-20 21:55 | Emergency Department Report ---
ED Lower Extremity HPI - General Chief Complaint: Extremity Injury, Lower Stated Complaint: FEELING PAIN/LFT LEG SWELLING/POST SURGERY Time Seen by Provider: 02/20/21 21:42 Source: patient Mode of arrival: Ambulatory Limitations: No Limitations - History of Present Illness Initial Comments: Chief complaint: "My leg hurts. It is swollen." HPI: This is a 55 yo male with hx of CVA Hypertension, NM, arthritis, COPD and PVD who presents with left foot pain left thigh pain since last night. Pain is moderate severe. Patient also has left foot swelling. This gentleman is 5 days status post grafting and stenting of the iliac arteries by Dr. Canelo Byers. Patient was encouraged by Dr. Douglass to be evaluated emergency department. MD Complaint: other (Left lower extremity pain, 5 days status post vascular procedure) -: Gradual, days(s) (Pain swelling began 1 day ago) Injury: Thigh: Left, Foot: Left Severity: moderate, severe Severity scale (0 -10): 7 Improves With: nothing Worsens With: weight bearing Context: other (Vascular surgery grafting stenting of the iliac arteries) Associated Symptoms: able to partially bear weight - Related Data Home Medications Medication Instructions Recorded Confirmed Last Taken Furosemide [Lasix] 40 mg PO PRN PRN 02/01/21 02/15/21 1 Day Ago ~02/14/21 Metoprolol [Lopressor TAB] 50 mg PO DAILY 02/01/21 02/15/21 1 Day Ago ~02/14/21 Potassium Chloride [Klor-Con M15] 15 meq PO DAILY 02/01/21 02/15/21 1 Day Ago ~02/14/21 Sacubitril/Valsartan [Entresto 24 1 tab PO DAILY 02/01/21 02/15/21 1 Day Ago - 26 mg] ~02/14/21 Oxybutynin [Ditropan] 5 mg PO QHS 02/16/21 02/16/21 02/13/21 22:00 Previous Rx's Medication Instructions Recorded Last Taken Type Apixaban [Eliquis] 5 mg PO BID #60 tablet 02/01/21 1 Day Ago Rx ~02/14/21 Aspirin EC [Halfprin EC] 81 mg PO QDAY #90 tablet. 02/16/21 Unknown Rx Clopidogrel [Plavix] 75 mg PO QDAY #90 tablet 02/16/21 Unknown Rx Oxycodone HCl/Acetaminophen 1 each PO Q6HR PRN #20 tablet 02/16/21 Unknown Rx [Percocet 7.5/325 mg] Pantoprazole [Protonix] 40 mg PO QDAY #90 tablet 02/16/21 Unknown Rx oxyCODONE /ACETAMINOPHEN [Percocet 1 tab PO Q6HR PRN #15 tablet 02/20/21 Unknown Rx 5/325] Allergies Allergy/AdvReac Type Severity Reaction Status Date / Time morphine Allergy UNABLE TO Verified 02/01/21 10:23 SWALLOW ED Review of Systems ROS: Stated complaint: FEELING PAIN/LFT LEG SWELLING/POST SURGERY Other details as noted in HPI Comment: All other systems reviewed and negative Constitutional: denies: fever, malaise Respiratory: denies: cough, shortness of breath Cardiovascular: denies: chest pain Gastrointestinal: denies: abdominal pain, nausea, vomiting Skin: denies: rash, lesions ED Past Medical Hx - Past Medical History Previous Medical History?: Yes Hx Hypertension: Yes Hx Heart Attack/AMI: Yes (07/15) Hx Congestive Heart Failure: Yes Hx Diabetes: No Hx Arthritis: Yes Hx Asthma: No Hx COPD: Yes - Surgical History Hx Pacemaker: Yes Hx Internal Defibrillator: Yes - Social History Smoking Status: Never Smoker - Medications Home Medications: Home Medications Medication Instructions Recorded Confirmed Last Taken Type Apixaban [Eliquis] 5 mg PO BID #60 tablet 02/01/21 02/15/21 1 Day Ago Rx ~02/14/21 Furosemide [Lasix] 40 mg PO PRN PRN 02/01/21 02/15/21 1 Day Ago History ~02/14/21 Metoprolol [Lopressor TAB] 50 mg PO DAILY 02/01/21 02/15/21 1 Day Ago History ~02/14/21 Potassium Chloride [Klor-Con M15] 15 meq PO DAILY 02/01/21 02/15/21 1 Day Ago History ~02/14/21 Sacubitril/Valsartan [Entresto 24 1 tab PO DAILY 02/01/21 02/15/21 1 Day Ago History - 26 mg] ~02/14/21 Aspirin EC [Halfprin EC] 81 mg PO QDAY #90 02/16/21 Unknown Rx Clopidogrel [Plavix] 75 mg PO QDAY #90 tablet 02/16/21 Unknown Rx Oxybutynin [Ditropan] 5 mg PO QHS 02/16/21 02/16/21 02/13/21 22:00 History Oxycodone HCl/Acetaminophen 1 each PO Q6HR PRN #20 tablet 02/16/21 Unknown Rx [Percocet 7.5/325 mg] Pantoprazole [Protonix] 40 mg PO QDAY #90 tablet 02/16/21 Unknown Rx oxyCODONE /ACETAMINOPHEN [Percocet 1 tab PO Q6HR PRN #15 tablet 02/20/21 Unknown Rx 5/325] ED Physical Exam - General Limitations: No Limitations General appearance: alert, in no apparent distress, other (Nontoxic appearing) - Head Head exam: Present: atraumatic, normocephalic - Eye Eye exam: Present: normal appearance - ENT ENT exam: Present: mucous membranes moist - Neck Neck exam: Present: normal inspection, full ROM - Respiratory Respiratory exam: Present: normal lung sounds bilaterally. Absent: respiratory distress, wheezes, rales - Cardiovascular Cardiovascular Exam: Present: regular rate, normal rhythm, normal heart sounds. Absent: systolic murmur, diastolic murmur, rubs, gallop - GI/Abdominal GI/Abdominal exam: Present: soft. Absent: distended, tenderness, guarding, rebound - Rectal Rectal exam: Present: deferred - Extremities Exam Extremities exam: Present: other (2+ DP pulse, pedal edema, left thigh left leg normal in size comparable to right lower extremity) - Back Exam Back exam: Present: normal inspection - Neurological Exam Neurological exam: Present: alert, oriented X3 - Psychiatric Psychiatric exam: Present: normal affect, normal mood - Skin Skin exam: Present: warm, dry, intact, normal color. Absent: rash ED Course Vital Signs 02/20/21 21:13 Temperature 98.4 F Pulse Rate 89 Respiratory 18 Rate Blood Pressure 112/63 O2 Sat by Pulse 99 Oximetry ED Lower Extremity MDM - Medical Decision Making Postoperative pain status post stenting grafting of iliac arteries bilaterally. I spoke with Dr. Douglass vascular surgeon who recommended pain control and follow- up with his service tomorrow in the office. Patient received IV ketorolac and p.o. Percocet emergency department. He received prescription for 15 tablets of Percocet. Extremity is neurovascularly intact. He has intact sensation thro ughout left lower extremity. 2+ DP pulse present. Discharged home in stable condition. Vital signs reviewed vital signs are normal stable Critical care attestation.: If time is entered above; I have spent that time in minutes in the direct care of this critically ill patient, excluding procedure time. ED Disposition Clinical Impression: Postoperative pain, S/P insertion of iliac artery stent, Peripheral vascular disease Disposition: HOME / SELF CARE / HOMELESS Is pt being admited?: No Does the pt Need Aspirin: No Condition: Stable Additional Instructions: Please follow-up with Dr. Byers tomorrow in the office. Prescriptions: oxyCODONE /ACETAMINOPHEN [Percocet 5/325] 1 tab PO Q6HR PRN #15 tablet PRN Reason: Pain Referrals: CANELO BYERS MD [Staff Physician] - [facility]
[2021-02-20] MEDS ORDERED: KETOROLAC 30 MG/1 ML INJ IV ONE (21:57)
[2021-02-20] MEDS ORDERED: oxyCODONE /ACETAMINOPHEN 5-325MG TAB PO ONE (21:57)
== END 2021-02-20 22:43 | disposition home or self-care (01) ==
LOC: ED 20:57
DX: I73.9 Peripheral vascular disease, unspecified (principal); G89.18 Other acute postprocedural pain; I11.0 Hypertensive heart disease with heart failure; M19.90 Unspecified osteoarthritis, unspecified site; J44.9 Chronic obstructive pulmonary disease, unspecified; Z88.6 Allergy status to analgesic agent
CPT/HCPCS: 96374; 99282; J1885